=== PATIENT | female | born 1985 | race African-American/Black ===

== ENCOUNTER 2017-02-20 02:02 | Emergency (ER) | payer SELFPAY ==
[2017-02-20 02:53] LABS: BASOPHIL% 0.7 % (0-2.5); EOSINOPHIL# 0.1 X10e3 (0-0.7); EOSINOPHIL% 2.3 % (0.0-7.0); HEMATOCRIT 32.9 % (35.0-45.0); HEMOGLOBIN 10.8 gm/dL (12.0-16.0); LYMPHOCYTE# 2.4 X10e3 (1.0-3.5); LYMPHOCYTE% 41.9 % (17.0-45.0); MEAN CELL VOLUME 99.2 FL (83-96); MEAN CORPUSCULAR HEMOGLOBIN 32.7 PG (28-34); MONOCYTE# 0.5 X10e3 (0-1.0); MONOCYTE% 8.7 % (3.0-12.0); NEUTROPHIL# 2.6 X10e3 (1.5-7.1); NEUTROPHIL% 46.4 % (40-75); PLATELET COUNT 395 X10e3 (140-420); RED BLOOD COUNT 3.31 X10e (3.90-5.30); RED CELL DISTRIBUTION WIDTH 13.8 % (11.0-15.5); WHITE BLOOD COUNT 5.6 X10e3 (4.0-10.5)
[2017-02-20 02:58] LABS: DIFF IND NO
[2017-02-20 03:13] LABS: BUN/CREATININE RATIO 16.66; CREATININE SERUM 0.6 mg/dL (0.6-1.4); GLOM FILT RATE Estimated 139.8 mL/min (>60); POTASSIUM 3.7 mmol/L (3.5-5.1)
== END 2017-02-20 03:40 | disposition home or self-care (01) ==
LOC: CED 02:02
PROVIDERS: Physician Assistant
DX: M54.9 Dorsalgia, unspecified (principal); F41.9 Anxiety disorder, unspecified; F17.210 Nicotine dependence, cigarettes, uncomplicated
CPT/HCPCS: 36415; 80048; 84703; 85025; 99284